=== PATIENT | female | born 1980 | race Caucasian/White ===

== ENCOUNTER → 2016-11-27 | Outpatient (CLI) | payer OTHER | LOC: FIMAGING 10:00 | PROVIDERS: ATTEND Obstetrics & Gynecology | DX: O09.521 Supervision of elderly multigravida, first trimester (principal); Z3A.19 19 weeks gestation of pregnancy ==

== ENCOUNTER → 2017-02-09 | Outpatient (CLI) | payer OTHER | LOC: FIMAGING 09:16 | PROVIDERS: ATTEND Obstetrics & Gynecology | DX: O09.523 Supervision of elderly multigravida, third trimester (principal); O36.5930 Maternal care for other known or suspected poor fetal growth, third trimester, not applicable or unspecified; Z3A.29 29 weeks gestation of pregnancy ==

== ENCOUNTER → 2017-02-17 | Outpatient (CLI) | payer OTHER | LOC: FIMAGING 11:38 | PROVIDERS: ATTEND Obstetrics & Gynecology | DX: O36.5930 Maternal care for other known or suspected poor fetal growth, third trimester, not applicable or unspecified (principal); Z3A.30 30 weeks gestation of pregnancy ==

== ENCOUNTER → 2017-02-26 | Outpatient (CLI) | payer OTHER | LOC: FIMAGING 08:52 | PROVIDERS: ATTEND Obstetrics & Gynecology | DX: O36.5930 Maternal care for other known or suspected poor fetal growth, third trimester, not applicable or unspecified (principal); O09.523 Supervision of elderly multigravida, third trimester; Z3A.32 32 weeks gestation of pregnancy; Z87.59 Personal history of other complications of pregnancy, childbirth and the puerperium ==

== ENCOUNTER 2017-03-02 12:30 | Observation (INO) | payer OTHER | END 2017-03-02 14:25 | disposition home or self-care (01) | LOC: FLD 12:30 | PROVIDERS: ADMIT Midwife; ATTEND Midwife | DX: O36.5930 Maternal care for other known or suspected poor fetal growth, third trimester, not applicable or unspecified (principal); O09.523 Supervision of elderly multigravida, third trimester; Z87.59 Personal history of other complications of pregnancy, childbirth and the puerperium; Z3A.32 32 weeks gestation of pregnancy | CPT/HCPCS: G0378 ×2 ==

== ENCOUNTER → 2017-03-03 | Outpatient (CLI) | payer OTHER | LOC: FIMAGING 09:12 | PROVIDERS: ATTEND Obstetrics & Gynecology | DX: O36.5930 Maternal care for other known or suspected poor fetal growth, third trimester, not applicable or unspecified (principal); Z3A.32 32 weeks gestation of pregnancy; Z87.59 Personal history of other complications of pregnancy, childbirth and the puerperium ==

== ENCOUNTER → 2017-03-12 | Outpatient (CLI) | payer OTHER | LOC: FIMAGING 08:58 | PROVIDERS: ATTEND Obstetrics & Gynecology | DX: O36.5930 Maternal care for other known or suspected poor fetal growth, third trimester, not applicable or unspecified (principal); Z3A.34 34 weeks gestation of pregnancy ==

== ENCOUNTER → 2017-03-19 | Outpatient (CLI) | payer OTHER | LOC: FIMAGING 08:46 | PROVIDERS: ATTEND Obstetrics & Gynecology | DX: O36.5930 Maternal care for other known or suspected poor fetal growth, third trimester, not applicable or unspecified (principal); O09.523 Supervision of elderly multigravida, third trimester; Z3A.35 35 weeks gestation of pregnancy ==

== ENCOUNTER → 2017-03-26 | Outpatient (CLI) | payer OTHER | LOC: FIMAGING 09:02 | PROVIDERS: ATTEND Obstetrics & Gynecology | DX: O36.5930 Maternal care for other known or suspected poor fetal growth, third trimester, not applicable or unspecified (principal); O09.523 Supervision of elderly multigravida, third trimester; Z3A.36 36 weeks gestation of pregnancy ==

== ENCOUNTER → 2017-04-02 | Outpatient (CLI) | payer OTHER | LOC: FIMAGING 11:57 | PROVIDERS: ATTEND Obstetrics & Gynecology | DX: O09.523 Supervision of elderly multigravida, third trimester (principal); O36.5930 Maternal care for other known or suspected poor fetal growth, third trimester, not applicable or unspecified; Z3A.37 37 weeks gestation of pregnancy ==

== ENCOUNTER 2017-04-03 06:00 | Inpatient (IN) | payer OTHER ==
[2017-04-07] MEDS ORDERED: LR 1,000 ML IV PRN (08:08)
[2017-04-07] MEDS ORDERED: TERBUTALINE SULFATE 1 MG/ML VIAL IV PRN (08:08)
[2017-04-07] MEDS ORDERED: EPSOM SALT 454 GM TP PRN (08:08)
[2017-04-07] MEDS ORDERED: OLIVE OIL 118 ML BTL MISC PRN (08:08)
[2017-04-07] MEDS ORDERED: OXYTOCIN/RINGERS LACTATE 1,000 ML IV PRN (08:08)
[2017-04-07] MEDS ORDERED: IBUPROFEN 600 MG TAB PO PRN (08:08)
[2017-04-07] MEDS ORDERED: OXYTOCIN/LR *STANDARD DOSE PROTOCOL IV SCH ×2 (08:30→09:30)
[2017-04-07 09:20] LABS: % IMMATURE GRANULYOCYTES 0.6 % (0.0-1.1); ABSOLUTE IMMATURE GRANULOCYTES 0.05 10^3/uL (0.00-0.10); ADD DIFF? NO; ADD MORPH? NO; ADD SCAN? NO; ATYPICAL LYMPHOCYTE FLAG 0 (0-99); FRAGMENT RBC FLAG 0 (0-99); HEMATOCRIT 38.6 % (38.0-47.0); HEMOGLOBIN 13.4 g/dL (12.6-16.3); LEFT SHIFT FLG 0 (0-99); LIPEMIA HEMOLYSIS FLAG 90 (0-99); MEAN CELL HEMOGLOBIN 31.5 pg (27.9-34.1); MEAN CELL HEMOGLOBIN CONCENTR. 34.7 g/dL (32.4-36.7); MEAN CELL VOLUME 90.8 fL (81.5-99.8); MEAN PLATELET VOLUME 10.5 fL (8.7-11.7); PLATELET CLUMPS FLAG 10 (0-99); PLATELET COUNT 249 10^3/uL (150-400); RED BLOOD CELL COUNT 4.25 10^6/uL (4.18-5.33)
[2017-04-07] MEDS ORDERED: LIDOCAINE 1% 300 MG/30 ML SDV ONE (09:25)
[2017-04-07] MEDS ORDERED: MISOPROSTOL 200 MCG TAB ONE (09:26)
[2017-04-07] MEDS ORDERED: OLIVE OIL 118 ML BTL ONE (09:26)
[2017-04-07] MEDS ORDERED: AMMONIA AROMATIC 1 EACH AMP IH ONE (09:26)
[2017-04-07] MEDS ORDERED: TERBUTALINE SULFATE 1 MG/ML VIAL ONE (09:26)
[2017-04-07 09:48] LABS: ALANINE AMINOTRANSFERASE 34 IU/L (9-52); ASPARTATE AMINOTRANSFERASE 39 IU/L (14-46); BILIRUBIN,TOTAL 0.7 mg/dL (0.1-1.4); BILIRUBIN-CONJUGATED 0.4 mg/dL (0.0-0.5); BILIRUBIN-UNCONJUGATED 0.3 mg/dL (0.0-1.1); CREATININE 0.7 mg/dL (0.6-1.0); GLOMERULAR FILTRATION RATE > 60; LACTATE DEHYDROGENASE 679 IU/L (313-618); URIC ACID 5.1 mg/dL (2.5-6.8)
--- NOTE | 2017-04-07 12:01 | OBPROG ---
OBG Labor Progress Note Assessment/Plan: Assessment: Plan: Subjective: patient occasionally feeling contractions. childress bulb fell out. long discussion about next steps. declines AROM for now. will reassess in an hour. status is reassuring. Objective: 04/07/17 09:05 04/07/17 09:05 Patient ABO/Rh O POSITIVE 04/07/17 09:05 Uric Acid 5.1 mg/dL (2.5-6.8) 04/07/17 09:05 Total Bilirubin 0.7 mg/dL (0.1-1.4) 04/07/17 09:05 Conjugated Bilirubin 0.4 mg/dL (0.0-0.5) 04/07/17 09:05 Unconjugated Bilirubin 0.3 mg/dL (0.0-1.1) 04/07/17 09:05 AST 39 IU/L (14-46) 04/07/17 09:05 ALT 34 IU/L (9-52) 04/07/17 09:05 Lactate Dehydrogenase 679 IU/L (313-618) H 04/07/17 09:05 - SVE Dilation (cm): 3 Effacement (%): 80 Station: -2 Oxytocin Orders Assessment - Pre-Induction/Augmentation Assessment Gestational Age: 37 week(s) and 6 day(s) ICD10 Worksheet Patient Problems: Problems Problem Status Onset Intrauterine growth retardation Acute (spontaneous vaginal delivery) Acute
--- NOTE | 2017-04-07 13:01 | GHP ---
[f rep st] PREOP HISTORY AND PHYSICAL DATE OF ADMISSION: 04/07/2017 ADMISSION DIAGNOSIS: 1. Intrauterine at 37-6/7 weeks' gestation. 2. Intrauterine growth restriction. 3. A 2-vessel cord. INDICATIONS: Patient is a 36-year-old, 3, para 1-0-1-1, who transferred to [facility] at 36 weeks. She has good dating. She has been followed by Maternal Medicine for intrau terine growth restriction in the 2nd percentile and a 2-vessel cord and elevated Doppler. It was in itially recommended she be delivered at 37 weeks but the patient declined and wanted to wait until 3 8 weeks. She had a Aguilar bulb placed last night and arrived to Labor and Delivery for induction of labor this morning. The patient has been started on Pitocin. PAST MEDICAL HISTORY: Negative. MEDICATIONS: vitamins and DHE. PAST SURGICAL HISTORY: None. ALLERGIES: No known drug allergies. SOCIAL HISTORY: Patient is . She is a musm-bp-vejn mom. She lives with her and her other child. She denies tobacco, alcohol, or drug use. FAMILY MEDICAL HISTORY: Noncontributory. CRYSTAL GROWER HISTORY: Menarche age 12. Periods every 28 days, lasting 5 days. She is a 3, para 1-0-1-1. In 04/2014, she had a spontaneous vaginal delivery of a 4 pound 1 ounce male at 38+ weeks' gestation. She had a rapid labor after being induced with Cytotec for intrauterine growth r estriction. In 04/2016, she had a missed which was treated with Cytotec. Current pregnanc y has been complicated by 2-vessel cord and intrauterine growth restriction. She had a Aguilar bulb p laced last night and is started on Pitocin. Patient denies any history of any abnormal Pap smears o r sexually transmitted diseases. REVIEW OF SYSTEMS: The 10-point review of systems is unremarkable. She has good movement. N o loss of fluid. Denies any vaginal bleeding. Denies any headache or changes in vision. Denies an y right upper quadrant pain, nausea or vomiting, fevers or chills. PHYSICAL EXAM: VITAL SIGNS: Stable. GENERAL APPEARANCE: Alert and oriented x3. NEUROLOGIC: Unre markable. NECK: Mobile and supple. LUNGS: Clear to auscultation bilaterally. CARDIAC: Heart ra te is regular/regular. ABDOMEN: Gravid, nondistended, nontender. EXTREMITIES: No calf tenderness or edema. CERVICAL EXAM: She is 3 cm dilated, 80% effaced, and -2 station. in the vertex presentation. Category I tracing. She is having occasional contractions. LABORATORY DATA: Blood type O positive. Antibody screen negative. Rubella immune. GBS i s negative. Her 50 g glucose was 101. AFP was negative. Verifi screen was negative. HIV screen n egative. HBsAg is negative. ASSESSMENT AND PLAN: A 36-year-old, 3, para 1-0-1-1, who is 37-6/7 weeks' gestation, here f or induction of labor for intrauterine growth restriction and a 2-vessel cord. She had a Aguilar bulb placed yesterday. She has been started on Pitocin. She will be managed expectantly. /[id number]/MODL
--- NOTE | 2017-04-07 14:13 | OBPROG ---
OBG Labor Progress Note Assessment/Plan: Assessment: Plan: Subjective: patient still comfortable. pitocin is at 14 mu. discussed management options since no changes in cervix. agreeable to have AROM. AROM. small amount of clear fluid. status reassuring. Objective: 04/07/17 09:05 04/07/17 09:05 Patient ABO/Rh O POSITIVE 04/07/17 09:05 Uric Acid 5.1 mg/dL (2.5-6.8) 04/07/17 09:05 Total Bilirubin 0.7 mg/dL (0.1-1.4) 04/07/17 09:05 Conjugated Bilirubin 0.4 mg/dL (0.0-0.5) 04/07/17 09:05 Unconjugated Bilirubin 0.3 mg/dL (0.0-1.1) 04/07/17 09:05 AST 39 IU/L (14-46) 04/07/17 09:05 ALT 34 IU/L (9-52) 04/07/17 09:05 Lactate Dehydrogenase 679 IU/L (313-618) H 04/07/17 09:05 - SVE Dilation (cm): 4 Effacement (%): 80 Station: -2 - Procedures Non-surgical Procedures: Amniotomy Oxytocin Orders Assessment - Pre-Induction/Augmentation Assessment Gestational Age: 37 week(s) and 6 day(s) ICD10 Worksheet Patient Problems: Problems Problem Status Onset Intrauterine growth retardation Acute
--- NOTE | 2017-04-07 15:54 | OBDEL ---
Info Type: Vaginal GBS+: No Vaginal Delivery - Labor and Delivery Onset of Contractions Date: 04/07/17 Onset of Contractions Time: 14:30 Onset of Contractions Type: Induced Rupture of Membranes Date: 04/07/17 Rupture of Membranes Time: 14:06 Dilation Complete Date: 04/07/17 Dilation Complete Time: 15:14 Placenta Delivery Date: 04/07/17 Placenta Delivery Time: 15:35 Total Hours of Labor: 1 Non-surgical Procedures: Amniotomy Laceration: 1st Degree Repair: 3-0 Vaginal Sponge Count Correct: No Vaginal Needle Count Correct: No Vaginal Sweep Performed: No EBL: 200 Delivery Events: Nuchal Cord - Medications Labor Augmentation/Induction Methods Used: Pitocin Labor Augmentation/Induction Indication: IUGR Data [place] Delivery Date: 04/07/17 Delivery Time: 15:30 GWEN: 04/22/17 Gestational Age: 37 week(s) and 6 day(s) Sex of Infant: Female Score (1 Min): 8 Score (5 Min): 9 ICD10 Worksheet Patient Problems: Problems Problem Status Onset Intrauterine growth retardation Acute
[2017-04-07] MEDS ORDERED: DOCUSATE SODIUM 100 MG CAP PO PRN (15:55)
[2017-04-07] MEDS ORDERED: ACETAMINOPHEN 325 MG TAB PO PRN (15:55)
[2017-04-07] MEDS ORDERED: HYDROCODONE/APAP 5/325 TAB PO PRN (15:55)
[2017-04-07] MEDS ORDERED: SIMETHICONE 80 MG TAB CHEW PO PRN (15:55)
[2017-04-07] MEDS ORDERED: HYDROCORTISONE 0.5% CREAM TP PRN (15:55)
--- NOTE | 2017-04-08 08:11 | OBPP ---
Progress Note Assessment/Plan: Assessment: s/p PPD # 1 - pt is stable Plan: Continue routine pp care Plan for d/c home in am 04/0904/08/17 08:09 Subjective: Pt seen and examined. Doing well with no complaints. Mild cramping elian when breast feeds. Moderate lochia. Voiding without difficulty. Passing flatus. NO BM. BF without difficulty. Objective: 04/07/17 09:05 04/07/17 09:05 Patient ABO/Rh O POSITIVE 04/07/17 09:05 Uric Acid 5.1 mg/dL (2.5-6.8) 04/07/17 09:05 Total Bilirubin 0.7 mg/dL (0.1-1.4) 04/07/17 09:05 Conjugated Bilirubin 0.4 mg/dL (0.0-0.5) 04/07/17 09:05 Unconjugated Bilirubin 0.3 mg/dL (0.0-1.1) 04/07/17 09:05 AST 39 IU/L (14-46) 04/07/17 09:05 ALT 34 IU/L (9-52) 04/07/17 09:05 Lactate Dehydrogenase 679 IU/L (313-618) H 04/07/17 09:05 Temp Pulse Resp BP Pulse Ox 36.9 C 84 17 118/76 97 04/07/17 20:00 04/07/17 20:00 04/07/17 20:00 04/07/17 20:00 04/07/17 20:00 Uterine Position/Fundal Height: Umbilicus -2 Uterine Tone: Firm Physical Exam - Physical Exam General Appearance: WD/WN, alert, no apparent distress Respiratory: lungs clear, normal breath sounds Cardiac/Chest: regular rate, rhythm Abdomen: normal bowel sounds, non-tender, soft, flatus (+) Extremities: non-tender, normal inspection Skin: normal color, warm/dry Neuro/Psych: alert, normal mood/affect, oriented x 3
--- NOTE | 2017-04-09 09:10 | OBPP ---
Progress Note Assessment/Plan: Assessment: 36 y/o PPd #2 s/p doing well. Plan: doing well, d/c home with APNO cream. Pt declines Ibuprofen. 04/09/17 09:09 Subjective: Pt is doing well after delivery. She has min cramping and perineal pain. She has significant nipple pain, but milk is starting to come in. Min lochia, no n/ v, precious reg diet and she is ready to d/c home. Objective: 04/07/17 09:05 04/07/17 09:05 Patient ABO/Rh O POSITIVE 04/07/17 09:05 Uric Acid 5.1 mg/dL (2.5-6.8) 04/07/17 09:05 Total Bilirubin 0.7 mg/dL (0.1-1.4) 04/07/17 09:05 Conjugated Bilirubin 0.4 mg/dL (0.0-0.5) 04/07/17 09:05 Unconjugated Bilirubin 0.3 mg/dL (0.0-1.1) 04/07/17 09:05 AST 39 IU/L (14-46) 04/07/17 09:05 ALT 34 IU/L (9-52) 04/07/17 09:05 Lactate Dehydrogenase 679 IU/L (313-618) H 04/07/17 09:05 Temp Pulse Resp BP Pulse Ox 36.2 C 68 18 131/85 H 95 04/08/17 21:00 04/08/17 21:00 04/08/17 21:00 04/08/17 21:00 04/08/17 08:00 Uterine Position/Fundal Height: Umbilicus -2 Uterine Tone: Firm Physical Exam - Physical Exam General Appearance: WD/WN, alert, no apparent distress Neck: non-tender, full range of motion, supple Respiratory: chest non-tender, lungs clear, normal breath sounds Cardiac/Chest: regular rate, rhythm Abdomen: normal bowel sounds Extremities: swelling (no), Pio's sign (neg)
--- NOTE | 2017-04-09 09:13 | OBGCSDC ---
General Delivery Information - General Info : 3 Para: 2 Abortions: 1 Delivery Physician/CNM: Josie Montgomery Admission Date: 04/07/17 Labs: Patient ABO/Rh O POSITIVE 04/07/17 09:05 Hct 38.6 % (38.0-47.0) 04/07/17 09:05 Vaginal - Diagnosis Labor: Induced Laceration: 1st Degree Repair: 3-0 Delivery Events: Nuchal Cord - Operations/Procedures Non-surgical Procedures: Amniotomy L&D Analgesia/Anesthesia Type: None - Hospital Course Antepartum: transfer to [facility] @ 36 weeks, IUGR and 2 vessel cord with elevated dopplers. IOL @ 37 6/7 weeks Intrapartum: childress, 3 cm, pitocin, AROM rapid progress, pushed x 1 : uncomplicated, mild cramping, min lochia, sore nipples will call in APNO - Delivery Non-surgical Procedures: Amniotomy L&D Analgesia/Anesthesia Type: None Data [place] Delivery Date: 04/07/17 Delivery Time: 15:30 GWEN: 04/22/17 Gestational Age: 38 week(s) and 1 day(s) Sex of : Female Weight (gm): 2246 g Score (1 Min): 8 Score (5 Min): 9 Discharge Information - Discharge Information Discharge Medications: Iron Condition: Good Instruction/Follow Up: Four Weeks, Six Weeks Discharge Physician/CNM: Eloina Crabtree
[2017-04-09 09:49] VITALS: BP 135/80; PULSE 88; RESP 16; TEMP 97.1; O2SAT 96
== END 2017-04-09 16:50 | disposition home or self-care (01) | DRG 775 ==
LOC: FLD 04-07 07:14 → FOB 04-07 17:59
PROVIDERS: ADMIT Obstetrics & Gynecology; ATTEND Obstetrics & Gynecology
PROC: 0HQ9XZZ Repair Perineum Skin, External Approach (ICD-10-PCS; principal; 2017-04-07)
PROC: 10907ZC Drainage of Amniotic Fluid, Therapeutic from Products of Conception, Via Natural or Artificial Opening (ICD-10-PCS; principal; 2017-04-07)
PROC: 10E0XZZ Delivery of Products of Conception, External Approach (ICD-10-PCS; principal; 2017-04-07)
PROC: 3E033VJ Introduction of Other Hormone into Peripheral Vein, Percutaneous Approach (ICD-10-PCS; principal; 2017-04-07)
DX: O36.5930 Maternal care for other known or suspected poor fetal growth, third trimester, not applicable or unspecified (principal); Z37.0 Single live birth; O70.0 First degree perineal laceration during delivery; Z3A.37 37 weeks gestation of pregnancy; O69.82X0 Labor and delivery complicated by other cord entanglement, without compression, not applicable or unspecified
CPT/HCPCS: J2590; J3105

== ENCOUNTER 2017-08-28 20:13 | Emergency (ER) | payer OTHER ==
[2017-08-28 20:21] VITALS: TEMP 98.1
[2017-08-28] MEDS ORDERED: NS 1,000 ML IV ONE (20:31)
[2017-08-28 20:36] LABS: % IMMATURE GRANULYOCYTES 0.3 % (0.0-1.1); ABSOLUTE IMMATURE GRANULOCYTES 0.02 10^3/uL (0.00-0.10); ADD DIFF? NO; ADD MORPH? NO; ADD SCAN? NO; ATYPICAL LYMPHOCYTE FLAG 0 (0-99); FRAGMENT RBC FLAG 0 (0-99); HEMATOCRIT 37.5 % (38.0-47.0); HEMOGLOBIN 13.3 g/dL (12.6-16.3); LEFT SHIFT FLG 0 (0-99); LIPEMIA HEMOLYSIS FLAG 90 (0-99); MEAN CELL HEMOGLOBIN 30.5 pg (27.9-34.1); MEAN CELL HEMOGLOBIN CONCENTR. 35.5 g/dL (32.4-36.7); MEAN PLATELET VOLUME 9.1 fL (8.7-11.7); PLATELET CLUMPS FLAG 0 (0-99); PLATELET COUNT 301 10^3/uL (150-400); RED BLOOD CELL COUNT 4.36 10^6/uL (4.18-5.33); RED CELL DISTRIBUTION WIDTH 11.8 % (11.5-15.2)
[2017-08-28] MEDS ORDERED: KETOROLAC 15 MG/1 ML SDV IVP ONE (20:45)
--- NOTE | 2017-08-28 20:51 | EDPHY ---
H & P Time Seen by Provider: 08/28/17 20:34 HPI/ROS: CHIEF COMPLAINT: Headache HISTORY OF PRESENT ILLNESS: 36-year-old female with a history of migraine headaches presents with a headache. Onset of a left-sided throbbing headache this morning. Associated with photophobia and 1 episode of vomiting. She has a history of similar headaches during . The headaches typically occur when she is under a lot of stress. She is . No recent illness and no fever. REVIEW OF SYSTEMS: Constitutional: No fever, no chills Eyes: No visual changes ENT: No sore throat Respiratory: No cough, no shortness of breath Cardiac: No chest pain Gastrointestinal: No nausea, no vomiting, no abdominal pain Genitourinary: no dysuria Musculoskeletal: No leg pain or swelling Skin: No rash Neurological: no numbness, no weakness Psychiatric: Anxiety Past Medical/Surgical History: Migraine headaches Smoking Status: Never smoked Physical Exam: General Appearance: Alert, pleasant, appears in pain Eyes: Pupils equal and round, no conjunctival pallor ENT, Mouth: Mucous membranes moist Neck: Normal inspection Respiratory: Lungs are clear to auscultation Cardiovascular: Regular rate and rhythm Gastrointestinal: Abdomen is soft and nontender Neurological: Alert, oriented x3, cranial nerves II through XII intact, motor 5 /5, sensory intact to light touch Skin: Warm and dry Extremities: normal inspection Psychiatric: Anxious Constitutional: Initial Vital Signs Temperature (C) 36.7 C 08/28/17 20:19 Heart Rate 94 08/28/17 20:19 Respiratory Rate 18 08/28/17 20:19 Blood Pressure 113/72 08/28/17 20:19 O2 Sat (%) 97 08/28/17 20:19 O2 Delivery Mode Room Air Allergies/Adverse Reactions: No Known Allergies Allergy (Unverified 03/02/17 13:31) Home Medications: Medication Instructions Recorded NK [No Known Home Meds] 08/28/17 Medical Decision Making ED Course/Re-evaluation: IV normal saline 1 L and Toradol 30 mg IV given. 9:30 p.m.-the headache has completely resolved and she is ready to go home. Warning signs discussed. Differential Diagnosis: Headache including but not limited to subarachnoid hemorrhage, migraine headache , tension headache and infectious causes such as meningitis, pharyngitis and sinusitis. - Data Points Laboratory Results: Laboratory Results 08/28/17 20:30 08/28/17 20:30 08/28/17 08/28/17 08/28/17 20:30 20:30 20:30 WBC 7.28 10^3/uL 10^3/uL (3.80-9.50) RBC 4.36 10^6/uL 10^6/uL (4.18-5.33) Hgb 13.3 g/dL g/dL (12.6-16.3) Hct 37.5 % L % (38.0-47.0) MCV 86.0 fL fL (81.5-99.8) MCH 30.5 pg pg (27.9-34.1) MCHC 35.5 g/dL g/dL (32.4-36.7) RDW 11.8 % % (11.5-15.2) Plt Count 301 10^3/uL 10^3/uL (150-400) MPV 9.1 fL fL (8.7-11.7) Neut % (Auto) 76.7 % H % (39.3-74.2) Lymph % (Auto) 17.2 % % (15.0-45.0) Martin % (Auto) 5.4 % % (4.5-13.0) Eos % (Auto) 0.0 % L % (0.6-7.6) Baso % (Auto) 0.4 % % (0.3-1.7) Nucleat RBC Rel Count 0.0 % % (0.0-0.2) Absolute Neuts (auto) 5.59 10^3/uL 10^3/uL (1.70-6.50) Absolute Lymphs (auto) 1.25 10^3/uL 10^3/uL (1.00-3.00) Absolute Monos (auto) 0.39 10^3/uL 10^3/uL (0.30-0.80) Absolute Eos (auto) 0.00 10^3/uL L 10^3/uL (0.03-0.40) Absolute Basos (auto) 0.03 10^3/uL 10^3/uL (0.02-0.10) Absolute Nucleated RBC 0.00 10^3/uL 10^3/uL (0-0.01) Immature Gran % 0.3 % % (0.0-1.1) Immature Gran # 0.02 10^3/uL 10^3/uL (0.00-0.10) Sodium 134 mEq/L mEq/L (134-144) Potassium 3.6 mEq/L mEq/L (3.5-5.2) Chloride 104 mEq/L mEq/L (97-110) Carbon Dioxide 21 mEq/l L mEq/l (22-31) Anion Gap 9 mEq/L mEq/L (8-16) BUN 10 mg/dL mg/dL (7-23) Creatinine 0.7 mg/dL mg/dL (0.6-1.0) Estimated GFR > 60 Glucose 91 mg/dL mg/dL (70-100) Calcium 9.4 mg/dL mg/dL (8.5-10.4) Beta HCG, Qual NEGATIVE Medications Given: Discontinued Medications Sodium Chloride (Ns) 1,000 mls @ 0 mls/hr IV ONCE ONE; Wide Open PRN Reason: Protocol Stop: 08/28/17 20:32 Last Admin: 08/28/17 20:34 Dose: 1,000 mls Ketorolac Tromethamine (Toradol) 30 mg IVP EDNOW ONE Stop: 08/28/17 20:46 Last Admin: 08/28/17 20:50 Dose: 30 mg Departure - Departure Disposition: Home, Routine, Self-Care Clinical Impression: Migraine headache Qualifiers: Migraine type: without aura Status migrainosus presence: without status migrainosus Intractability: not intractable Qualified Code(s): G43.009 - Migraine without aura, not intractable, without status migrainosus Condition: Good Instructions: Migraine Headache (ED) Referrals: Taniya Winston MD [[facility] Primary Care Provider] - Follow Up Only If Needed
[2017-08-28 21:02] LABS: ANION GAP 9 mEq/L (8-16); CALCIUM 9.4 mg/dL (8.5-10.4); CARBON DIOXIDE 21 mEq/l (22-31); CHLORIDE 104 mEq/L (97-110); CREATININE 0.7 mg/dL (0.6-1.0); GLOMERULAR FILTRATION RATE > 60; GLUCOSE 91 mg/dL (70-100); POTASSIUM 3.6 mEq/L (3.5-5.2); SODIUM 134 mEq/L (134-144)
[2017-08-28 21:40] VITALS: BP 119/71; PULSE 88; RESP 16; O2SAT 96
== END 2017-08-28 21:38 | disposition home or self-care (01) ==
LOC: EDUNIT#
DX: G43.009 Migraine without aura, not intractable, without status migrainosus (principal); E86.9 Volume depletion, unspecified
CPT/HCPCS: 96374; J1885

== ENCOUNTER 2017-08-31 05:53 | Emergency (ER) | payer OTHER ==
[2017-08-31] MEDS ORDERED: NS 1,000 ML IV ONE ×3 (06:01→08:04)
[2017-08-31] MEDS ORDERED: PROMETHAZINE HCL 25 MG/ML INJ IVP ONE (06:01)
[2017-08-31] MEDS ORDERED: ONDANSETRON 4 MG/2 ML VIAL IVP ONE ×2 (06:01→09:34)
[2017-08-31] MEDS ORDERED: FAMOTIDINE 20 MG/NACL 50 ML IV ONE (06:01)
--- NOTE | 2017-08-31 06:12 | EDPHY ---
H & P Smoking Status: Never smoked Time Seen by Provider: 08/31/17 06:01 HPI/ROS: HPI Nausea vomiting and diarrhea. 36-year-old female by ambulance from home with her baby. This patient reports that she has had nausea with multiple episodes of nonbilious and nonbloody vomiting as well as multiple episodes of watery diarrhea since earlier this evening. She reports that her as well as her other child have been affected with this same illness. She describes having crampy abdominal discomfort. Denies any bloody or melenic stool. Has not been able to drink fluids since earlier yesterday evening. No change in diet. No foreign travel. ROS: Constitutional: No fever, no chills. No weakness. Eyes: No discharge. No changes in vision. ENT: No sore throat. No nasal congestion or rhinorrhea. Respiratory: No cough. No shortness of breath. Cardiac: No chest pain, no palpitations. Gastrointestinal: As above. Genitourinary: No hematuria. No dysuria or increased frequency with urination. Musculoskeletal: No back pain. No neck pain. No myalgias or arthralgias. Skin: No rashes. Neurological: No headache. No focal weakness or altered sensation. Past medical history: Migraine headaches with . Denies any other significant past medical history. She is not immunized. No medication allergies. Social history: Nonsmoker. . 2 children. No alcohol. Here by herself. Physical Exam: General Appearance: Alert, she appears uncomfortable. This patient is responding to questions appropriately and in full sentences. This patient appears well-hydrated and well-nourished. Eyes: Pupils equal and round no pallor or injection. No lid edema, erythema or injection. Respiratory: There are no retractions, lungs are clear to auscultation with good air movement bilaterally. Cardiovascular: Regular rate and rhythm. No murmur. Gastrointestinal: Abdomen is soft and without significant distension or tenderness on palpation, no masses, bowel sounds present. No focal tenderness at McBurney's point. No Dumont sign. Neurological: Motor sensory function is grossly intact. Cranial nerves are normal. Gait is normal. Skin: Warm and dry, no rashes. Musculoskeletal: Neck is supple and nontender. Extremities are symmetrical. All joints range without pain or impingement. Psychiatric: No agitation. No depression. Database: EKG: Imaging: Procedures: Emergency department course: IV was placed. She was started on IV normal saline with 2 L to be given over the next 1-2 hours for dehydration. Her nausea was initially treated with 20 mg of IV Pepcid, 4 mg of IV Zofran and 6.25 mg of IV Phenergan. 6:55 a.m., patient re-evaluated. She is sleeping comfortably with her child. Vital signs reviewed and are normal. She is on her 2nd L of IV fluid. Care was turned over to Dr. Kimmie Amor at 7:00 a.m.. After IV fluids she will be given an oral fluid challenge. Expected disposition is discharged to home. Differential Diagnosis: The differential diagnosis on this patient includes but is not limited to food borne illness, viral gastroenteritis. Bowel obstruction/volvulus, appendicitis , cholecystitis, other acute surgical etiology, pancreatitis unlikely. This represents a partial list of diagnoses considered. These considerations are based on history, physical exam, past history, reassessment and diagnostic testing. (Cici Pastrana) Constitutional: Initial Vital Signs Temperature (C) 36.8 C 08/31/17 05:55 Heart Rate 101 H 08/31/17 05:55 Respiratory Rate 19 08/31/17 05:55 Blood Pressure 91/59 L 08/31/17 05:55 O2 Sat (%) 98 08/31/17 05:55 O2 Delivery Mode Room Air Allergies/Adverse Reactions: No Known Allergies Allergy (Unverified 03/02/17 13:31) Home Medications: Medication Instructions Recorded Ondansetron Odt [Zofran Odt 4 mg 4 mg PO Q4PRN PRN #10 tab 08/31/17 (*)] Medical Decision Making Other Provider: I assumed care of this patient from Dr. Geller also at change of shift. Patient is receiving normal saline the with plans for discharge with a diagnosis of gastroenteritis. After 2 L of normal saline the patient has developed increased tachycardia. Heart rate on initial presentation to the emergency department was 101, however patient's heart rate is currently in the 120s on my evaluation. She reports little improvement with the fluids. She denies a fever. She reports she has had multiple bouts of vomiting as well as multiple bouts of diarrhea. She is nursing, she has taking adequate fluid. No urinary complaints. No redness, tenderness, or warmth on her breast to suggest mastitis. No Cough or cold symptoms. The patient received an additional L L of normal saline. Influenza swab was ordered. This was negative. EKG demonstrates sinus rhythm. The patient was examined on multiple occasions. She did been to developed a fever with a temperature max in the emergency department of 38.1 and report feeling chilled. Abdomen remains slightly distended and minimally tender throughout. No focal tenderness. CT scan of the abdomen pelvis for intra-abdominal pathology was considered. However, the patient concerned regarding the affects of contrast dye since she is nursing. At 1 o'clock in the afternoon the patient reports feeling significantly improved. She is tolerating p.o. fluids. She is provided a urinalysis which does not demonstrating signs of infection. She is no longer tachycardic. She was discharged with presumed diagnosis of viral syndrome. She was advised to return to the emergency department should her symptoms recur, should she have anything abdominal discomfort, other concerns. (Kimmie Amor) - Data Points Laboratory Results: Laboratory Results 08/31/17 05:45 08/31/17 11:35 Medications Given: Discontinued Medications Acetaminophen (Tylenol) 1,000 mg PO EDNOW ONE Stop: 08/31/17 09:46 Last Admin: 08/31/17 09:47 Dose: 1,000 mg Fentanyl (Sublimaze) 50 mcg IVP EDNOW ONE Stop: 08/31/17 09:35 Last Admin: 08/31/17 09:36 Dose: 50 mcg Sodium Chloride (Ns) 1,000 mls @ 0 mls/hr IV EDNOW ONE; Wide Open PRN Reason: Protocol Stop: 08/31/17 06:02 Last Admin: 08/31/17 06:09 Dose: 1,000 mls Sodium Chloride (Ns) 1,000 mls @ 0 mls/hr IV EDNOW ONE; Wide Open PRN Reason: Protocol Stop: 08/31/17 06:02 Last Admin: 08/31/17 06:10 Dose: 1,000 mls Famotidine/Sodium Chloride (Pepcid 20 Mg (Premix)) 50 mls @ 200 mls/hr IV EDNOW ONE Stop: 08/31/17 06:15 Last Admin: 08/31/17 06:09 Dose: 50 mls Sodium Chloride (Ns) 1,000 mls @ 3,000 mls/hr IV ONCE ONE Stop: 08/31/17 08:23 Last Admin: 08/31/17 08:10 Dose: 1,000 mls Ibuprofen (Motrin) 600 mg PO EDNOW ONE Stop: 08/31/17 10:46 Last Admin: 08/31/17 10:52 Dose: 600 mg Ondansetron HCl (Zofran) 4 mg IVP EDNOW ONE Stop: 08/31/17 06:02 Last Admin: 08/31/17 06:11 Dose: 4 mg Ondansetron HCl (Zofran) 4 mg IVP EDNOW ONE Stop: 08/31/17 09:35 Last Admin: 08/31/17 09:36 Dose: 4 mg Promethazine HCl (Phenergan) 6.25 mg IVP EDNOW ONE Stop: 08/31/17 06:02 Last Admin: 08/31/17 06:11 Dose: 6.25 mg Departure - Departure Disposition: Home, Routine, Self-Care Clinical Impression: Vomiting and diarrhea Condition: Good Instructions: Gastroenteritis (ED) Additional Instructions: Read and follow provided instructions. Adult Pain & Fever Control: We recommend Acetaminophen (Tylenol) and Ibuprofen (Motrin,Advil) for pain and fever control. When fever is high or pain severe, both drugs can be used at the same time, but at different intervals. Please note the time differences. Your dose is: Acetaminophen 1000 mg every 4 to 6 hours Ibuprofen 400-600 mg every 6-8 hours with food. Follow-up with your primary care physician in 1-2 days for re-evaluation. Take medication as prescribed for nausea. For your vomiting and diarrhea, I suggested you start with a bland diet and advance as tolerated. This means start with clear liquids such as water, Gatorade, juice, flat non- caffeinated soda. If you tolerate clear liquids, then you may add bland foods such as bananas, rice, or toast. If you do not have any worsening of your symptoms, you may begin to resume a regular diet. Return to the emergency department for worsening abdominal pain, vomiting and inability to keep fluids down despite medications, fever or other serious concerns. Referrals: Patient,NotPresent [Unknown] - As per Instructions Prescriptions: Ondansetron Odt [Zofran Odt 4 mg (*)] 4 mg PO Q4PRN PRN #10 tab PRN Reason: For Nausea & Vomiting
[2017-08-31 06:30] LABS: ANION GAP 19 mEq/L (8-16); CALCIUM 9.9 mg/dL (8.5-10.4); CARBON DIOXIDE 24 mEq/l (22-31); CHLORIDE 104 mEq/L (97-110); CREATININE 0.9 mg/dL (0.6-1.0); GLOMERULAR FILTRATION RATE > 60; GLUCOSE 118 mg/dL (70-100); POTASSIUM 4.1 mEq/L (3.5-5.2); SODIUM 147 mEq/L (134-144)
--- NOTE | 2017-08-31 09:12 | CPEKG ---
Heart Rate: 123 RR Interval: 488 QRSD Interval: 68 QT Interval: 288 QTC Interval: 412 QRS [place]: 82 T Wave [place]: -60 EKG Severity - ABNORMAL ECG - EKG Impression: BORDERLINE T ABNORMALITIES, DIFFUSE LEADS EKG Impression: sinus Electronically Signed By: Kimmie Amor 31-Aug-2017 17:58:15
[2017-08-31] MEDS ORDERED: fentaNYL 100 MCG/2 ML INJ ONE (09:33)
[2017-08-31] MEDS ORDERED: ONDANSETRON 4 MG/2 ML VIAL ONE (09:33)
[2017-08-31] MEDS ORDERED: fentaNYL 100 MCG/2 ML INJ IVP ONE (09:34)
[2017-08-31] MEDS ORDERED: ACETAMINOPHEN 500 MG TAB PO ONE (09:45)
[2017-08-31] MEDS ORDERED: ACETAMINOPHEN 500 MG TAB ONE (09:46)
[2017-08-31] MEDS ORDERED: IBUPROFEN 600 MG TAB PO ONE (10:45)
[2017-08-31 10:53] LABS: % IMMATURE GRANULYOCYTES 0.5 % (0.0-1.1); ABSOLUTE IMMATURE GRANULOCYTES 0.04 10^3/uL (0.00-0.10); ADD DIFF? NO; ADD MORPH? NO; ADD SCAN? NO; ATYPICAL LYMPHOCYTE FLAG 0 (0-99); FRAGMENT RBC FLAG 0 (0-99); HEMATOCRIT 43.9 % (38.0-47.0); HEMOGLOBIN 15.6 g/dL (12.6-16.3); LEFT SHIFT FLG 0 (0-99); LIPEMIA HEMOLYSIS FLAG 90 (0-99); MEAN CELL HEMOGLOBIN 31.4 pg (27.9-34.1); MEAN CELL HEMOGLOBIN CONCENTR. 35.5 g/dL (32.4-36.7); MEAN CELL VOLUME 88.3 fL (81.5-99.8); MEAN PLATELET VOLUME 9.4 fL (8.7-11.7); PLATELET CLUMPS FLAG 10 (0-99); PLATELET COUNT 308 10^3/uL (150-400); RED BLOOD CELL COUNT 4.97 10^6/uL (4.18-5.33)
[2017-08-31 11:23] VITALS: RESP 16
[2017-08-31 11:40] LABS: COLOR YELLOW; LEUKOCYTE ESTERASE,URINE NEGATIVE (NEGATIVE); NITRITE,URINE NEGATIVE (NEGATIVE)
[2017-08-31 12:01] LABS: ALANINE AMINOTRANSFERASE 21 IU/L (9-52); ALBUMIN 3.1 g/dL (3.5-5.0); ALKALINE PHOSPHATASE 49 IU/L (38-126); ANION GAP 8 mEq/L (8-16); ASPARTATE AMINOTRANSFERASE 31 IU/L (14-46); BILIRUBIN-CONJUGATED 0.5 mg/dL (0.0-0.5); BILIRUBIN-UNCONJUGATED 0.5 mg/dL (0.0-1.1); CALCIUM 7.7 mg/dL (8.5-10.4); CARBON DIOXIDE 19 mEq/l (22-31); CHLORIDE 115 mEq/L (97-110); CREATININE 0.7 mg/dL (0.6-1.0); GLOMERULAR FILTRATION RATE > 60; GLUCOSE 95 mg/dL (70-100); POTASSIUM 3.9 mEq/L (3.5-5.2); SODIUM 142 mEq/L (134-144); SPECIMEN HEMOLYSIS 149; TOTAL PROTEIN 5.3 g/dL (6.3-8.2)
[2017-08-31] MEDS ORDERED: IOPAMIDOL (ISOVUE-300) 100 ML BTL ONE (12:34)
[2017-08-31 13:27] VITALS: BP 98/59; PULSE 95; TEMP 98.2; O2SAT 96
== END 2017-08-31 13:27 | disposition home or self-care (01) ==
LOC: EDUNIT#
DX: R19.7 Diarrhea, unspecified (principal); R11.10 Vomiting, unspecified; E86.9 Volume depletion, unspecified
CPT/HCPCS: 96365; J2405; J2550; J3010; Q9967

== ENCOUNTER → 2019-01-24 | Outpatient (CLI) | payer OTHER | LOC: FIMAGING 07:20 | PROVIDERS: ATTEND Obstetrics & Gynecology | DX: O09.521 Supervision of elderly multigravida, first trimester (principal); Z3A.12 12 weeks gestation of pregnancy ==

== ENCOUNTER → 2019-03-28 | Outpatient (CLI) | payer OTHER | LOC: FIMAGING 08:05 ==